=== PATIENT | female | born 1970 | race African-American/Black ===

== ENCOUNTER 2025-01-18 10:39 | Emergency (ER) | payer OTHER ==
[~2025-01-18] VITALS: Ht 167.6 cm; Wt 80.0 kg
[2025-01-18 10:42] VITALS: O2SAT 99
[2025-01-18 11:10] VITALS: BP 144/107; PULSE 126; RESP 18; TEMP 37.5; O2SAT 99
== END 2025-01-18 12:28 | disposition left against medical advice (07) ==
LOC: ER 10:39
DX: R00.0 Tachycardia, unspecified (principal); I10 Essential (primary) hypertension; Z79.899 Other long term (current) drug therapy
CPT/HCPCS: 71045; 93005; 99284; Z7610; 99285; A4606